=== PATIENT | male | born 1970 | race Caucasian/White ===

== ENCOUNTER 2016-09-14 11:24 | Emergency (ER) | payer OTHER ==
[~2016-09-14] VITALS: Ht 177.8 cm; Wt 86.2 kg
[~2016-09-14 11:24] MED LIST: BENADRYL25 MG PO; IBUPROFEN 800800 M1 PO; LYRICA 50 MG50 MG PO; TRAZODONE HCL50 MG PO; XANAX 0.25 MG0.25 MG PO; ZANAFLEX4 MG PO
[2016-09-14] MEDS ORDERED: ONFI10 MG PO (12:13)
[2016-09-14] MEDS ORDERED: VIMPAT1 EACH PO (12:13)
[2016-09-14 12:31] LABS: ABSOLUTE NEUTROPHILS 4.9 thou/uL (1.4-8.2); BASOPHILS 1.1 % (0.0-2.0); EOSINOPHILS 3.3 % (0.0-3.0); HEMATOCRIT 43.5 % (42.0-52.0); LYMPHOCYTES 30.5 % (24.0-44.0); MCH 31.2 pg (26.0-34.0); MCHC 34.5 % (28.0-37.0); MCV 90.4 fL (80.0-100.0); MONOCYTES 5.8 % (1.0-8.0); PLATELET COUNT 230 thou/uL (150-400); POLYS 59.3 % (36.0-66.0); RBC 4.81 mil/uL (4.50-6.00); WBC 8.3 thou/uL (4.0-11.0)
[2016-09-14 12:33] LABS: MANUAL DIFF NO
[2016-09-14 12:38] LABS: CALCIUM 9.2 mg/dL (8.5-10.1); CREATININE 1.1 mg/dL (0.6-1.3)
[2016-09-14] MEDS ORDERED: MUCINEX600 MG PO (12:57)
[2016-09-14] MEDS ORDERED: PROAIR HFA8.5 GM INH (12:57)
[2016-09-14 13:47] VITALS: BP 150/81
== END 2016-09-14 13:48 | disposition home or self-care (01) ==
LOC: ER 11:24
PROVIDERS: Emergency Medicine
DX: J06.9 Acute upper respiratory infection, unspecified (principal); M79.641 Pain in right hand; Z71.6 Tobacco abuse counseling; F41.9 Anxiety disorder, unspecified; Z88.8 Allergy status to other drugs, medicaments and biological substances; F10.99 Alcohol use, unspecified with unspecified alcohol-induced disorder